=== PATIENT | male | born 1945 | race Caucasian/White ===

== ENCOUNTER 2017-02-04 18:53 | Inpatient (IN) | payer MEDICARE, OTHER ==
--- NOTE | ~2017-02-04 | CN ---
Consultation Report [facility] [address] [place]. [address] NAME: KEN GA : 46 STATUS : ADM IN [facility]#: [id number] AGE: 72 ADM/REG DATE : 02/04/17 MR#: [id number] REPORT SERV DATE: 02/10/17 DICTATED BY: RANDAL LEACH MARK SANDERS DATE: 02/09/17 REPORT STATUS : Draft TRANSCRIBED BY: MODL DATE: 02/09/17 CONSULTATION DATE OF CONSULTATION: 02/09/2017 REASON FOR CONSULTATION: Lung cancer. HISTORY OF PRESENT ILLNESS: Mr. Ga is a 72-year-old white male with a history of tobacco abuse and peripheral vascular disease who was admitted with an approximately 1 month history of cough and weight loss. Imaging in the emergency room which consisted of a chest x-ray and a CT angiogram of the chest revealed large cavitary mass in the right lung apex measuring 6.8 x 7.9 x 6.6 cm. This appeared to be eroding into the superior right chest wall, low anterior lateral second rib, and possibly involving the brachial plexus. There was a 10 mm associated supraclavicular node. Additionally, there was left apical parenchymal fibrosis. There is no clear evidence of metastatic disease outside of the right apex. He went on to have a bronchoscopy on 02/08/2017 with preliminary pathology being consistent with squamous cell carcinoma. He has had an MRI of the chest without contrast today with radiologic reading still pending. This is to evaluate the possible brachial plexus involvement. In addition to the patient's complaint of weight loss and cough, he complains of "nerve damage" in his right arm. He associates this with a bout of shingles approximately one year ago. He states he has had trouble with movement of the arm as well as pain in it as well. PAST MEDICAL HISTORY: 1. Peripheral vascular disease. 2. Peripheral artery disease. ALLERGIES: NO KNOWN DRUG ALLERGIES. HOME MEDICATIONS: Reviewed on the chart. SOCIAL HISTORY: He smokes for most of his life. He does not use alcohol. FAMILY HISTORY: Significant for his father with an unknown cancer. His mother had coronary artery disease. REVIEW OF SYSTEMS: A 12-point review of systems negative except as per HPI. PHYSICAL EXAMINATION: VITAL SIGNS: Blood pressure 110/57, pulse 89, and temperature 98.3. GENERAL: Very thin, no acute distress. HEENT: Anicteric sclerae. Oropharynx clear. NECK: Supple. No lymphadenopathy. Consultation Report [place] [address] [place]. [address] NAME: KEN GA : 46 STATUS : ADM IN [facility]#: [id number] AGE: 72 ADM/REG DATE : 02/04/17 MR#: [id number] REPORT SERV DATE: 02/10/17 DICTATED BY: RANDAL LEACH MARK SANDERS DATE: 02/09/17 REPORT STATUS : Draft TRANSCRIBED BY: IRAIDA DATE: 02/09/17 CARDIOVASCULAR: Coarse bilateral breath sounds. Fair effort. ABDOMEN: Soft, nontender. No organomegaly. CARDIOVASCULAR: Regular rhythm. Normal S1, S2. EXTREMITIES: No clubbing, cyanosis, or edema. LABORATORY DATA: Creatinine 0.58. White count 7500, hemoglobin 11.2 g, and platelets 293,000. ASSESSMENT AND PLAN: Mr. Ga is a 72-year-old white male with a large cavitary mass in the right apex of his lung. Preliminary pathology is consistent with squamous cell carcinoma. The imaging was personally reviewed and is highly concerning for involvement with his brachial plexus. He has symptoms which are consistent with brachial plexus involvement as well. Radiation Oncology is consulted and will likely see him tomorrow. I discussed the situation with the patient. He is reluctant to pursue radiation but would like to discuss this with him. He does state that he would consider chemotherapy if needed. He will need a completion staging, I would prefer a PET scan. This likely has to be done as an outpatient. However, it may be prudent to go ahead and pursue radiation therapy to the mass with a potential involvement of the brachial plexus. I will discuss this further with Radiation Oncology. All of his questions were answered. I will continue to follow with you. Thank you for the consultation. TAMMY/IRAIDA Johnny Leach IV, M.D. / [id number] CC: Duncan Sidhu M.D.
--- NOTE | ~2017-02-04 | HP ---
History And Physical [facility] [address] [place]. [address] NAME: KEN GA : 46 STATUS : ADM IN PAT#: [id number] AGE: 72 ADM/REG DATE : 02/04/17 MR#: [id number] REPORT SERV DATE: 02/04/17 DICTATED BY: DIONNE MONTENEGRO DATE: 02/04/17 REPORT STATUS : Draft TRANSCRIBED BY: MODL DATE: 02/04/17 DATE OF ADMISSION: 02/04/2017 POINT OF ENTRY: [facility] Emergency Department. CHIEF COMPLAINT: Cough, sputum production, hemoptysis, and weight loss. HISTORY OF PRESENT ILLNESS: Mr. Ga is a 72-year-old gentleman with a history of peripheral arterial disease and peripheral vascular disease as well as active tobacco abuse, who presents to the emergency department today with a one-month history of cough with scant hemoptysis with associated weight loss. The patient states that for the past month now he has been feeling sick. His symptoms primarily are pulmonary with cough as well as blood-tinged sputum. The patient denies any xin hemoptysis. He denies any fevers, does endorse some occasional night sweats and chills. The patient also endorse an approximately 6 pounds weight loss over the past month, but does admit that his appetite has been decreased and has not been eating very much. He was seen in clinic by Dr. West a few days ago to maybe a week ago and they thought he had strep throat and put him on some medications for that. The patient denies any known TB exposure. Denies any incarceration, service, homelessness, or foreign travel. He does smoke about a half pack per day and has approximately 25 to 64-[id number]-hjbk smoking history. Initial evaluation in the emergency department for a chest x-ray concerning for right apical cavitary lesion of approximately 7 x 7 cm. Labs notable for potassium of 5.8. He was subsequently admitted to the hospitalist service for further evaluation and management. The patient denies any fevers, chest pain, abdominal pain, nausea, vomiting, diarrhea, constipation, dysuria, melena, hematochezia, or hematemesis. He does endorse occasional shortness of breath and chest pain with coughing in addition to the above-mentioned symptoms. COMPREHENSIVE REVIEW OF SYSTEMS: Otherwise negative unless listed in history of present illness. PREVIOUS MEDICAL HISTORY: 1. Active tobacco abuse. 2. Peripheral arterial disease and peripheral vascular disease. Seen by Dr. Ernandez with lower extremity stenting. 3. Left lower extremity ischemic ulcer. Managed by Dr. Castaneda. SURGICAL HISTORY: Lower extremity stenting. ALLERGIES: NO KNOWN DRUG ALLERGIES. History And Physical [address] [place]. [address] NAME: KEN GA : 46 STATUS : ADM IN PAT#: [id number] AGE: 72 ADM/REG DATE : 02/04/17 MR#: [id number] REPORT SERV DATE: 02/04/17 DICTATED BY: DIONNE MONTENEGRO DATE: 02/04/17 REPORT STATUS : Draft TRANSCRIBED BY: IRAIDA DATE: 02/04/17 HOME MEDICATIONS: Pending at the time of dictation. SOCIAL HISTORY: He smokes about a half pack per day, has approximately 25 to 14-zwze-tcok smoking history. Denies any alcohol. Denies any illicits. As I mentioned above, denies any foreign travel, incarceration, homelessness, or service as well as denies any known TB exposure. FAMILY MEDICAL HISTORY: Mother with coronary artery disease. Father with cancer, unknown. Siblings with cancer, unknown. LABS AND IMAGIN. White count is 8.1, hemoglobin is 11.8, hematocrit is 36.0, platelet count is 306. INR is 1.1. 2. Sodium is 139, potassium 5.8, chloride 106, carbon dioxide 27, BUN 26, creatinine 0.72, glucose is 94, calcium is 8.8, magnesium is 2.5. 3. EKG per my review shows normal sinus rhythm with no evidence of any acute ischemia or infarction. Also no T-wave changes secondary to hyperkalemia appreciated. 4. Troponin less than 0.02. 5. Chest x-ray shows a right apical cavitary lesion approximately 7.2 x 7.3 cm as well as some COPD type changes with hyperinflation and flattened diaphragms. 6. CTA of the chest is pending at the time of dictation. PHYSICAL EXAMINATION: VITAL SIGNS: Temperature is 98.2 degrees Fahrenheit, pulse is 77, respirations 18, saturating 97% on room air, blood pressure 135/71. GENERAL: The patient is awake, alert, in no acute distress, resting comfortably in bed. He is a chronically ill-appearing, elderly male who is somewhat cachectic and appears older than stated age. HEENT: Atraumatic and normocephalic. Moist mucous membranes. Pupils equal, round, reactive to light and accommodation. Extraocular eye movements are intact. No scleral icterus. NECK: No jugular venous distention. No carotid bruits. CARDIAC: Regular rate and rhythm. No murmurs, rubs, or gallops. Normal S1, S2. LUNGS: Decreased breath sounds at bases with prolonged respiratory phase, but no wheezes, rhonchi, or crackles appreciated. ABDOMEN: Soft, nontender, nondistended with good bowel sounds. No rebound, guarding, or rigidity. EXTREMITIES: Left lower extremity is currently bandaged and wrapped. Right lower extremity is in a compression stocking. SKIN: Warm and dry except for noted above. PSYCH: Affect appropriate. NEURO: Alert and oriented x3. Cranial nerves 2 through 12 grossly intact. Speech is normal. Gait not assessed. ASSESSMENT AND PLAN: Mr. Ga is a 72-year-old gentleman, who presents with a one-month history of cough, scant hemoptysis, sputum production and weight loss and found to have a History And Physical [address] [address] NAME: KEN GA : 46 STATUS : ADM IN [facility]#: [id number] AGE: 72 ADM/REG DATE : 02/04/17 MR#: [id number] REPORT SERV DATE: 02/04/17 DICTATED BY: DIONNE MONTENEGRO DATE: 02/04/17 REPORT STATUS : Draft TRANSCRIBED BY: MODKusum DATE: 02/04/17 right apical cavitary lung lesion concerning for possible malignancy versus infection versus TB. PROBLEM LIST: 1. Right apical cavitary lung lesion. 2. Scant hemoptysis. 3. Hyperkalemia. 4. Chronic obstructive pulmonary disease. 5. History of peripheral vascular disease and peripheral arterial disease. PLAN: 1. Right apical cavitary lung lesion with scant hemoptysis. We will follow up CT of the chest which has been ordered here in the emergency department. Given concern for possible TB, we will place him empirically on airborne precautions. We will check a sputum culture, PPD as well as AFB smear and culture. We will consult Pulmonology for assistance and determine etiology of patient's symptoms. 2. Hyperkalemia. No EKG changes at this time. We will admit to cardiac telemetry. The patient received Kayexalate, calcium gluconate, IV fluids as well as insulin and glucose here in the emergency department. 3. COPD. No evidence of any exacerbation at this time. We will place the patient on some DuoNeb therapy. 4. Peripheral arterial disease and peripheral vascular disease. The patient states this is a long-standing issue. He denies being on any aspirin and Plavix at this time. We will consult Wound Care for assistance with management of the patient's vascular related ulcer on his left lower extremity. 5. DVT prophylaxis. TEDs and SCDs given hemoptysis. CODE STATUS: The patient wished to be full code. JCB/MODL Dionne Montenegro MD / [id number] CC: Devang Ly M.D.
--- NOTE | ~2017-02-04 | OP ---
Record Of Operation [facility] [address] [place]. [address] NAME: KEN GA : 46 STATUS : ADM IN PAT#: [id number] AGE: 72 ADM/REG DATE : 02/04/17 MR#: [id number] REPORT SERV DATE: 02/08/17 DICTATED BY: JOSEAHNK SHEILA DATE: 02/08/17 REPORT STATUS : Draft TRANSCRIBED BY: MODL DATE: 02/08/17 DATE OF PROCEDURE: 02/08/2017 PREPROCEDURE DIAGNOSIS: Right upper lobe cavitary mass. POSTPROCEDURE DIAGNOSIS: Right upper lobe cavitary mass. PROCEDURE: Bronchoscopy and endobronchial ultrasound with BAL, endobronchial biopsy and transbronchial needle aspiration. SPECIMENS: Right lung BAL, right endobronchial brushing in the right upper lobe, right upper lobe endobronchial biopsies, transbronchial needle aspiration of level 7 and right peritracheal nodes. DESCRIPTION OF PROCEDURE: Informed consent was obtained from the patient, both verbal and written. Risks and side effects were discussed and all questions answered. The patient was brought down to the bronchoscopy suite and sedated by Anesthesia. The patient was intubated with size 8.5 ET tube. The fiberoptic scope was inserted into the endotracheal tube to visualize the main charmaine and the distal trachea, which appeared normal. The left bronchial tree was surveyed with the left mainstem bronchus in the left upper lobe lingula and left lower lobe having some white tenacious secretions that were suctioned back, but the left lung was free of any endobronchial lesion or abnormality or mucosal irregularities. Thus, the scope was then withdrawn and inserted into the right mainstem, which immediately showed significant abnormalities of some mild right mainstem narrowing with an extrinsic mass like area on the 2 o'clock position of the right mainstem bronchus and then advancing further, you see a hole that I was not able to advance my adult scope into. I switched it out to a pediatric scope and inserted into the orifice of this hole to visualize the very large cavity with tumor inside of it. There did not appear to be any bronchopleural fistula I could see. The scope was withdrawn and then I switched out to the adult scope again to visualize the right middle lobe and right lower lobe which had some white tenacious secretions which were suctioned back, but the segments were open. The right upper lobe was completely collapsed by tumor. At the orifice of the cavity, there was tumor surrounding this area, so I took brushings and endobronchial biopsies. The brushings were sent for some slides and pathology. The endobronchial biopsies of this right upper lobe were sent for some touch preps, as well as pathology. Rapid on-site cytology did show that there was malignant cells favoring squamous cell cancer. I also got the BAL of the right lung as well. The scope was withdrawn and the endobronchial ultrasound scope was then inserted to visualize the level 7 lymph node with two slides and two cell blocks obtained. Specimens were obtained as the transbronchial needle aspiration. There was a good lymphoid sample for what the pathology says, but there were no obvious malignant cells. I then turned my attention to the right paratracheal mass. I sent to transbronchial needle aspiration samples for cell block. There was some bleeding around the orifice of the cavity after biopsying, so I did pour some epinephrine over that and then had good coagulation and cessation of bleeding. The patient tolerated the procedure well and was sent to recovery. Postprocedure chest x-ray is pending. Record Of [address] [address] NAME: KEN GA SHEILA : 47 STATUS : ADM IN [facility]#: [id number] AGE: 72 ADM/REG DATE : 02/04/17 MR#: [id number] REPORT SERV DATE: 02/08/17 DICTATED BY: HANK PIERRE DATE: 02/08/17 REPORT STATUS : Draft TRANSCRIBED BY: IRAIDA DATE: 02/08/17 CEP/IRAIDA Hank Pierre DO / [id number] CC: Duncan Sidhu M.D.
--- NOTE | ~2017-02-04 | CONSULT ---
Radiation Oncology Consult [facility] [address] [place]. [address] NAME: KEN GA : 46 STATUS : DIS IN PAT#: [id number] AGE: 72 ADM/REG DATE : 02/04/17 MR#: [id number] REPORT SERV DATE: 02/10/17 DICTATED BY: JAXSON ORTIZ DATE: 02/10/17 REPORT STATUS : Draft TRANSCRIBED BY: MODL DATE: 02/10/17 RADIATION ONCOLOGY CONSULTATION REPORT TITLE: Consultation REASON FOR CONSULTATION: Right Pancoast tumor. HISTORY OF PRESENT ILLNESS: Mr. Ga is a pleasant 72-year-old gentleman with history of chronic smoking, peripheral vascular disease who has had recent progression and weight loss and cough. He presented to the [facility] Emergency Room on 02/04/2017. CTA was performed showing a 6.8 x 7.9 x 6.6 cm irregular thick-walled cavitary mass in the right lung apex eroding to the anterior superior chest wall with erosion of the right anterior lateral second rib and possible involvement of the right brachial plexus. The mass invades directly into the superior right hilum extending up to the level of the charmaine, invades, and narrows the right mainstem bronchus and includes the upper lobe bronchus. There is also mildly enlarged supraclavicular lymph nodes up to 10 cm suspicious for early notes of metastasis and reticular nodule infiltrates in the lower right middle lobe which could be interstitial pneumonitis or is some asymmetric interstitial spread of malignancy. Additional MRI of the chest with and without contrast performed yesterday confirms diffuse tumoral encasement of the brachial plexus. The patient states that approximately one year ago, he had zoster eruption of the right upper chest and arm with residual neuropathy currently. Otherwise, he has 5/10 pain in the right upper chest and arm for which he has been taking pain medication. He reports 10-pound weight loss and continued phlegm production. He is currently being treated for pneumonia and states his breathing is slightly improved since be admitted to the hospital. REVIEW OF SYSTEMS: A comprehensive review of systems was obtained. Pertinent positives and negatives as listed above. PAST MEDICAL HISTORY: Chronic smoking, COPD, zoster, peripheral vascular disease, left lower extremity ulcer, toe surgery. FAMILY HISTORY: Family history of malignancy. SOCIAL HISTORY: He smoked one pack of cigarettes per day, has smoked for 50 years. He continued to smoke eight cigarettes per day up to admission. PHYSICAL EXAMINATION: GENERAL: Well-developed, thin-appearing elderly white male sitting in a hospital chair, in no acute distress. Alert and oriented x4. Performance status 2. ENT: Moist mucosa. Hearing unimpaired. NECK: Supple without adenopathy or thyromegaly. Radiation Oncology Consult [place] [address] [place]. [address] NAME: KEN GA : 46 STATUS : DIS IN PAT#: [id number] AGE: 72 ADM/REG DATE : 02/04/17 MR#: [id number] REPORT SERV DATE: 02/10/17 DICTATED BY: JAXSON ORTIZ DATE: 02/10/17 REPORT STATUS : Draft TRANSCRIBED BY: IRAIDA DATE: 02/10/17 EYES: Sclerae are anicteric. Pupils equal, round, and reactive to light. PULMONARY: Distant breath sounds throughout with rhonchi heard in the right upper chest. ABDOMEN: Soft, nontender, nondistended. Positive bowel sounds. NEUROLOGIC: Focal deficit in card decorator and finger expansion of the right hand as well as biceps abduction but flexion on the right. The patient also hold his right arm in a somewhat guarded position. He denies sensation changes over this area. IMAGING: I reviewed CT and MRI imaging and agree with the above findings. ASSESSMENT AND PLAN: 1. An 8 cm right Pancoast tumor with invasion through the chest wall with erosion of the second rib as well as encasement of brachial plexus: He needs to complete workup with PET-CT as well as contrasted MRI of the brain. In the meantime, we will work to arrange for CT simulation(hopefully tomorrow or early next week) with anticipation of at least palliative treatment (30 Gy in 10 fractions) or possibly definitive treatment (60 - 65 Gy and 30 - 35 fractions) if no additional disease with final PET-CT or MRI. I will discuss this further with Dr. Hartman. 2. Informed consent: Risks, benefits, and alternatives of radiotherapy explained to the patient. He voiced understanding and has elected to proceed with the above. Acute and late side effects were extensively discussed. is in agreement. 3. Chronic smoking: I advised him of the risk of continued smoking, and we will continue to offer smoking cessation counseling. 4. Pneumonia: This could be treated as an inpatient. 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 It may be the zoster was initialized by this encasement or could otherwise occur independently. 6. Pain: Pain is controlled at this time. Palliative radiotherapy potentially would help. It is a pleasure to participate in his care. BRENNA/IRAIDA Jaxson Ortiz MD / [id number] CC: Devang Corral DO Mark S Womack IV, M.D. David Dodson, M.D.
--- NOTE | ~2017-02-04 | DS ---
Discharge Summary [address] [id number] [place]. [address] NAME: KEN GA : 46 STATUS : DIS IN PAT#: [id number] AGE: 72 ADM/REG DATE : 02/04/17 MR#: [id number] REPORT SERV DATE: 02/11/17 DICTATED BY: DAVE BURGER DATE: 02/10/17 REPORT STATUS : Draft TRANSCRIBED BY: MODL DATE: 02/10/17 ADMISSION DATE: 02/04/2017 DISCHARGE DATE: 02/10/2017 DISCHARGE DIAGNOSES: 1. 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 2. Chronic obstructive pulmonary disease and tobacco use. 3. Pneumonia present on admission. Culture Pseudomonas. 4. Moderate malnutrition with weight loss. 5. Superficial clot in the right arm in the cephalic and basilic vein. 6. Tachycardia, atrial flutter resolved to normal sinus rhythm. 7. History of herpes zoster with postherpetic neuralgia. DISCHARGE MEDICATIONS: Gabapentin 300 mg daily, Levaquin 750 mg daily for four more days, prescription was written. Metoprolol 12.5 mg twice a day, nicotine patch 14 mg topically daily, Ventolin inhaler two puffs every four to six hours p.r.n. for shortness of breath, Symbicort 160/4.5 two puffs twice a day. CONSULTS DURING THIS ADMISSION: Include Pulmonology, Dr. Nahed Cleaning, Dr. Hank Pierre; Oncology, Dr. Johnny Stuart; Radiation Oncology, Dr. Ortiz. PROCEDURES AND IMAGING DURING THIS ADMISSION: Include a CTA of the chest showing no evidence of pulmonary embolus, but a large cavitary mass in the right lung apex eroding into superior right chest wall, eroding the anterior lateral 2nd rib possibly involving the brachial plexus; mildly enlarged supraclavicular lymph nodes; fine reticular nodular infiltrates in the anterior right middle lobe and right lower lobe; and a bronchoscopy with biopsy needle aspiration performed on 02/08/2017 with preliminary data that was suspicious for squamous cell cancer, and the venous Doppler ultrasound of the right upper extremity showing cephalic and basilic superficial acute clot. Echocardiogram showing a mildly decreased left ventricular systolic function with ejection fraction 40% to 45%, but valves were not visualized, poor-quality study, and a large left pleural effusion noted. MRI of chest showing a Pancoast type tumor eroding into the right apex with encasement of the brachial plexus. CONTINUATION OF HOSPITAL COURSE: Now, the patient was initially seen by Dr. Jay Galeas. He had been started on empiric antibiotic therapy and this was continued, and lab work did show a somewhat elevated potassium upon admission, but this trended downward the following day to 4.5. Cultures were obtained and sent. Lab work was followed closely. He initially had been put on isolation as this cavitary mass in the right lung was further evaluated, but his AFB smears have been negative. Pulmonary services recommended the above described bronchoscopy, which was performed and patient tolerated it well. Respiratory culture came back showing a Pseudomonas, and he was transitioned to Levaquin antibiotic as it was sensitive to this, and afterwards a consult was placed to [facility] who began seeing the patient, who recommended obtaining an MRI of the chest. The patient continued to do well, was able to be ambulated with physical therapy in the hallway, was eating and drinking well. It was recommended that he have outpatient home health and home physical Discharge Summary [address] [address] NAME: KEN GA : 46 STATUS : DIS IN PAT#: [id number] AGE: 72 ADM/REG DATE : 02/04/17 MR#: [id number] REPORT SERV DATE: 02/11/17 DICTATED BY: DAVE BURGER DATE: 02/10/17 REPORT STATUS : Draft TRANSCRIBED BY: IRAIDA DATE: 02/10/17 therapy continued. After discussion at length with Dr. Ortiz and Dr. Stuart, he will need an outpatient PET scan, an outpatient MRI of the brain, and will begin radiation treatments promptly as the further workup is done outpatient. He will have a followup ultrasound of the right arm in approximately seven days and outpatient pulmonary followup in three to four weeks. He will follow up with Dr. Castaneda, his snapper on for chronic left lower extremity wound that he had prior to admission. Primary care as scheduled. I have instructed him at length to stop smoking and [facility] will begin seeing the patient at home and he will also obtain a CT scan of the right upper chest contrasted that was ordered by Dr. Ortiz as well. I updated the patient's family, son, , and patient at bedside. I have answered questions extensively. They are in agreement with this plan going forward, so the patient was discharged home. Please note, greater than 30 minutes was spent on this discharge for medication teaching, followup planning, and further disposition. SARA/IRAIDA Dave Burger NP / [id number] CC: Duncan Sidhu M.D.
--- NOTE | ~2017-02-04 | CN ---
Consultation Report [facility] [address] [place]. [address] NAME: KEN GA : 46 STATUS : ADM IN [facility]#: [id number] AGE: 72 ADM/REG DATE : 02/04/17 MR#: [id number] REPORT SERV DATE: 02/05/17 DICTATED BY: NAHED SUMNER DATE: 02/05/17 REPORT STATUS : Draft TRANSCRIBED BY: MODL DATE: 02/05/17 PULMONARY CONSULTATION DATE OF CONSULTATION: 02/05/2017 REASON FOR CONSULTATION: Lung mass. HISTORY OF PRESENT ILLNESS: Mr. Ga is a 72-year-old, white male smoker, who was admitted with approximately six-week history of anorexia, malaise, and weight loss of approximately 20 pounds. He also complains of cough, productive of green sputum, and hemoptysis. He describes "sometimes a lot" of bright red blood mixed in with his sputum. He states his cough has been worse over the past one to two weeks. He has had worsening weakness in addition to the symptoms as described above, so he presented here to [facility] and was subsequently admitted. As part of his admission workup, he had a chest x-ray followed by CT angiogram of the chest that revealed a large right apical cavitary lung mass, so Pulmonary was consulted for assistance. The patient denies fever, chills, shortness of breath, wheezing, night sweats, or chest pain. He denies any TB risk factors, including exposures and recent travel. He is unaware of previous chest imaging or CT scans. He denies any prior pulmonary diagnoses. Since admission, he has been treated with IV antibiotics, IV fluids, and supplemental oxygen and feels somewhat better. PAST MEDICAL HISTORY: 1. As noted above, he denies prior pulmonary diagnoses. Per the medical record, he has COPD, though it is unclear how this was diagnosed. 2. Smoking/tobacco addiction. 3. Recent varicella zoster with residual intermittent pain. 4. Peripheral artery disease with previous lower extremity vascular stent. 5. Left lower extremity ischemic ulcer. 6. Previous toe surgery. FAMILY HISTORY: He denies family history of pulmonary diseases. SOCIAL HISTORY: Mr. Ga smoked under one pack of cigarettes per day and has been a smoker for approximately 50 years. He currently smokes seven to eight cigarettes per day. He denies ethanol intake, past/present drug use, or chewing tobacco. 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 He is and has one son. MEDICATIONS: He was on no medications as an outpatient. He denies previous treatment with Consultation Report [facility] [id number] [place]. [address] NAME: KEN GA : 46 STATUS : ADM IN PAT#: [id number] AGE: 72 ADM/REG DATE : 02/04/17 MR#: [id number] REPORT SERV DATE: 02/05/17 DICTATED BY: NAHED SUMNER DATE: 02/05/17 REPORT STATUS : Draft TRANSCRIBED BY: IRAIDA DATE: 02/05/17 any type of pulmonary medication. ALLERGIES: PENICILLIN. REVIEW OF SYSTEMS: A 10-point system review was conducted and is remarkable for the symptoms as described in the history of present illness. As noted, he has no history of prior pulmonary symptoms. He denies symptoms suggestive of obstructive sleep apnea. He denies joint pain. PHYSICAL EXAMINATION: VITAL SIGNS: Temperature 97.6 degrees, heart rate 76, respiratory rate 24, oxygen saturation 99% on supplemental oxygen at a flow rate of 2 L/minute. GENERAL: Sleeping but awakens easily to voice. Appropriate, no apparent distress. HEENT: Normocephalic. Atraumatic. There is bitemporal wasting. The conjunctivae are clear. The oropharynx is clear. NECK: Supple. No lymphadenopathy was appreciated. LUNGS: There are coarse breath sounds anteriorly. There are diminished breath sounds at both bases. There are no crackles, wheezes, or rhonchi. HEART: Regular rate and rhythm. There is no ectopy. ABDOMEN: Soft. Nontender. Nondistended. There is no hepatosplenomegaly. The bowel sounds are normal in all four quadrants. BILATERAL EXTREMITIES: No clubbing, cyanosis, or edema was noted. NEUROLOGICAL: A limited exam was found to be nonfocal. SKIN: No rashes were noted. There is some vitiligo noted on chest. LABORATORY RESULTS: Labs were reviewed and are as documented in the record. Notable labs include a white blood cell count of 6.2. The hematocrit is 35.6 with a hemoglobin of 11.3. Legionella antigen is negative. There is a sputum for AFB pending. He has had a PPD placed. IMAGING: The chest x-ray done this admission revealed a large right upper lobe cavitary mass along with hyperinflation and flattened diaphragms. No effusions or infiltrates were noted. CT angiogram of the chest done this admission did not reveal a pulmonary embolism. There is generalized emphysema. There are fine reticular infiltrates in the right middle and right lower lobes. There is a large right apical thick-walled cavitary lung mass that measures 6.8 x 7.9 x 6.6 cm per Radiology. This mass is eroding into the anterior chest wall and the second rib. It extends from the right hilum/charmaine and involves the right mainstem and right upper lobe bronchus. There is slight enlargement of the right supraclavicular nodes. ASSESSMENT AND PLAN: Mr. Ga is a 72-year-old, white male smoker with a large right apical lung mass, weight loss, cough, and hemoptysis. His symptoms are most suspicious for malignancy but infection is possible particularly tuberculosis or other atypical mycobacteria. Consultation Report [address] [address] NAME: KEN GA : 46 STATUS : ADM IN [facility]#: [id number] AGE: 72 ADM/REG DATE : 02/04/17 MR#: [id number] REPORT SERV DATE: 02/05/17 DICTATED BY: NAHED SUMNER DATE: 02/05/17 REPORT STATUS : Draft TRANSCRIBED BY: IRAIDA DATE: 02/05/17 I agree with his current antibiotic regimen. As noted above, a PPD has been placed. One sputum has been obtained for AFB. Recommend sputum smear and culture for AFB x3 as well as routine sputum culture. If/when the AFB smears are negative, then recommend biopsy with bronchoscopy being the highest yield as the patient does have extensive involvement of the right lung. With regard to his baseline pulmonary function, he does deny COPD, though he does have emphysema and changes consistent with COPD noted on the CT scan of the chest. I agree with bronchodilators. Recommend baseline PFTs when the patient is able. He was counseled for approximately 5 minutes regarding the importance of smoking cessation. I agree with nicotine replacement. Thank you very much for this consultation. Further recommendations to follow after AFB smears are available for review. EUGENIO/IRAIDA Nahed Sumner M.D. / [phone] CC: Jay Galeas M.D.
[2017-02-04 14:45] LABS: BASOPHILS 0.5 %; BASOPHILS ABSOLUTE 0.04 10/3/uL (0.0-0.16); EOSINOPHILS 0.4 %; EOSINOPHILS ABSOLUTE 0.03 10/3/uL (0.0-0.53); ER CBC TAT 0 Hrs 05 Mins; HEMOGLOBIN 11.8 g/dL (13.6-17.8); IMMATURE GRANULOCYTES 0.1 %; IMMATURE GRANULOCYTES ABSOLUTE 0.01 10/3/uL (0.0-0.11); LYMPHOCYTES 18.9 %; LYMPHOCYTES ABSOLUTE 1.53 10/3/uL (0.67-4.30); MEAN CORPUS HGB CONC 32.8 g/dL (32.0-36.0); MEAN CORPUSCULAR HEMOGLOB 29.3 pg (26.0-34.0); MONOCYTES 12.3 %; NEUTROPHILS 67.8 %; NEUTROPHILS ABSOLUTE 5.49 10/3/uL (2.02-8.40); PLATELET COUNT 306 10/3/uL (150-400); RBC DISTRIBUTION WIDTH 13.5 % (12.0-16.0); RED CELL COUNT 4.03 10/6/uL (4.7-6.1); WHITE BLOOD CELLS 8.1 10/3/uL (4.5-10.5)
[2017-02-04 14:48] LABS: MANUAL DIFF NO %; MEAN CORPUSCULAR VOLUME 89.3 fL (80-100)
[2017-02-04 14:53] LABS: INTERNATIONAL NORMAL RATI 1.1 UNITS (-); PARTIAL THROMBO TIME 40.5 SEC (22.5-37.2); PROTIME (NOT ORD) 14.5 SEC (12.0-14.5)
[2017-02-04 14:59] LABS: BUN (BLOOD UREA NITROGEN) 26 MG/DL (6-23); CALCIUM, SERUM 8.8 MG/DL (8.5-10.4); CHEST PAIN PROFILE TAT 0 Hrs 19 Mins; CHLORIDE, SERUM 106 MMOL/L (96-112); CO2 (CARBON DIOXIDE) 27 MMOL/L (24-34); CREATININE 0.72 MG/DL (0.70-1.30); GFR AFRICAN AMERICAN 109 ML/MIN (>=60); GFR NON AFRICAN AMERICAN 94 ML/MIN (>=60); GLUCOSE, SERUM 94 MG/DL (60-99); POTASSIUM, SERUM 5.8 MMOL/L (3.5-5.3); SODIUM, SERUM 139 MMOL/L (135-148); TROPONIN I <0.02 NG/ML (<0.05)
[2017-02-04] MEDS ORDERED: NEUR300 PO (19:40)
[2017-02-05 00:04] LABS: ALBUMIN 2.8 G/DL (3.5-5.0); DIRECT BILIRUBIN 0.2 MG/DL (0.0-0.4); INDIRECT BILIRUBIN(NOT ORDER) 0.3 MG/DL (0.1-0.9); SGOT(AST) 24 U/L (5-40); SGPT(ALT) 26 U/L (5-65); TOTAL BILIRUBIN 0.5 MG/DL (0-1.2); TOTAL PROTEIN 7.7 G/DL (6.0-8.5)
[2017-02-05 00:10] LABS: ALKALINE PHOSPHATASE 71 U/L (45-117)
[2017-02-05 04:02] LABS: BASOPHILS 0.5 %; BASOPHILS ABSOLUTE 0.03 10/3/uL (0.0-0.16); EOSINOPHILS 1.1 %; EOSINOPHILS ABSOLUTE 0.07 10/3/uL (0.0-0.53); HEMATOCRIT 35.6 % (40.0-51.0); HEMOGLOBIN 11.3 g/dL (13.6-17.8); IMMATURE GRANULOCYTES 0.2 %; IMMATURE GRANULOCYTES ABSOLUTE 0.01 10/3/uL (0.0-0.11); LYMPHOCYTES 25.4 %; LYMPHOCYTES ABSOLUTE 1.57 10/3/uL (0.67-4.30); MEAN CORPUS HGB CONC 31.7 g/dL (32.0-36.0); MEAN CORPUSCULAR HEMOGLOB 28.9 pg (26.0-34.0); MEAN PLATELET VOLUME 9.3 fL (9.2-13.0); MONOCYTES 12.6 %; MONOCYTES ABSOLUTE 0.78 10/3/uL (0.21-1.20); NEUTROPHILS 60.2 %; NEUTROPHILS ABSOLUTE 3.73 10/3/uL (2.02-8.40); PLATELET COUNT 291 10/3/uL (150-400); RBC DISTRIBUTION WIDTH 13.7 % (12.0-16.0); RED CELL COUNT 3.91 10/6/uL (4.7-6.1); WHITE BLOOD CELLS 6.2 10/3/uL (4.5-10.5)
[2017-02-05 04:03] LABS: MANUAL DIFF NO %
[2017-02-05 04:14] LABS: CALCIUM, SERUM 8.2 MG/DL (8.5-10.4); CHLORIDE, SERUM 109 MMOL/L (96-112); CO2 (CARBON DIOXIDE) 25 MMOL/L (24-34); CREATININE 0.57 MG/DL (0.70-1.30); GFR AFRICAN AMERICAN 120 ML/MIN (>=60); GFR NON AFRICAN AMERICAN 103 ML/MIN (>=60); GLUCOSE, SERUM 87 MG/DL (60-99); SODIUM, SERUM 143 MMOL/L (135-148)
[2017-02-05 04:27] LABS: BUN (BLOOD UREA NITROGEN) 18 MG/DL (6-23); POTASSIUM, SERUM 4.5 MMOL/L (3.5-5.3)
[2017-02-05 20:59] LABS: FREE T4 1.4 NG/DL (0.76-1.46); ULTRASENSITIVE TSH 1.31 MCIU/ML (0.358-3.740)
[2017-02-06 07:50] LABS: BASOPHILS 0.1 %; BASOPHILS ABSOLUTE 0.01 10/3/uL (0.0-0.16); EOSINOPHILS 0.7 %; EOSINOPHILS ABSOLUTE 0.05 10/3/uL (0.0-0.53); HEMATOCRIT 33.7 % (40.0-51.0); HEMOGLOBIN 11.1 g/dL (13.6-17.8); IMMATURE GRANULOCYTES 0.1 %; IMMATURE GRANULOCYTES ABSOLUTE 0.01 10/3/uL (0.0-0.11); LYMPHOCYTES 18.6 %; LYMPHOCYTES ABSOLUTE 1.28 10/3/uL (0.67-4.30); MEAN CORPUS HGB CONC 32.9 g/dL (32.0-36.0); MEAN CORPUSCULAR HEMOGLOB 28.8 pg (26.0-34.0); MEAN PLATELET VOLUME 8.8 fL (9.2-13.0); MONOCYTES 12.3 %; MONOCYTES ABSOLUTE 0.85 10/3/uL (0.21-1.20); NEUTROPHILS 68.2 %; PLATELET COUNT 291 10/3/uL (150-400); RED CELL COUNT 3.86 10/6/uL (4.7-6.1); WHITE BLOOD CELLS 6.9 10/3/uL (4.5-10.5)
[2017-02-06 07:54] LABS: MEAN CORPUSCULAR VOLUME 87.3 fL (80-100)
[2017-02-06 07:55] LABS: MANUAL DIFF NO %
[2017-02-06 07:56] LABS: CALCIUM, SERUM 7.5 MG/DL (8.5-10.4); CHLORIDE, SERUM 108 MMOL/L (96-112); CO2 (CARBON DIOXIDE) 26 MMOL/L (24-34); CREATININE 0.57 MG/DL (0.70-1.30); GFR AFRICAN AMERICAN 120 ML/MIN (>=60); GFR NON AFRICAN AMERICAN 103 ML/MIN (>=60); GLUCOSE, SERUM 93 MG/DL (60-99); SODIUM, SERUM 142 MMOL/L (135-148)
[2017-02-06 07:57] LABS: BUN (BLOOD UREA NITROGEN) 9 MG/DL (6-23); POTASSIUM, SERUM 3.5 MMOL/L (3.5-5.3)
[2017-02-07 04:51] LABS: BASOPHILS 0.4 %; BASOPHILS ABSOLUTE 0.03 10/3/uL (0.0-0.16); EOSINOPHILS 1.2 %; EOSINOPHILS ABSOLUTE 0.09 10/3/uL (0.0-0.53); HEMATOCRIT 34.3 % (40.0-51.0); HEMOGLOBIN 11.2 g/dL (13.6-17.8); IMMATURE GRANULOCYTES 0.3 %; IMMATURE GRANULOCYTES ABSOLUTE 0.02 10/3/uL (0.0-0.11); LYMPHOCYTES 15.2 %; LYMPHOCYTES ABSOLUTE 1.13 10/3/uL (0.67-4.30); MEAN CORPUS HGB CONC 32.7 g/dL (32.0-36.0); MEAN CORPUSCULAR HEMOGLOB 29.2 pg (26.0-34.0); MEAN CORPUSCULAR VOLUME 89.3 fL (80-100); MEAN PLATELET VOLUME 9.1 fL (9.2-13.0); MONOCYTES 10.1 %; MONOCYTES ABSOLUTE 0.75 10/3/uL (0.21-1.20); NEUTROPHILS 72.8 %; NEUTROPHILS ABSOLUTE 5.43 10/3/uL (2.02-8.40); PLATELET COUNT 293 10/3/uL (150-400); RBC DISTRIBUTION WIDTH 13.8 % (12.0-16.0); RED CELL COUNT 3.84 10/6/uL (4.7-6.1); WHITE BLOOD CELLS 7.5 10/3/uL (4.5-10.5)
[2017-02-07 04:54] LABS: MANUAL DIFF NO %
[2017-02-07 05:08] LABS: BUN (BLOOD UREA NITROGEN) 7 MG/DL (6-23); CALCIUM, SERUM 7.8 MG/DL (8.5-10.4); CHLORIDE, SERUM 107 MMOL/L (96-112); CREATININE 0.47 MG/DL (0.70-1.30); GFR AFRICAN AMERICAN 130 ML/MIN (>=60); GFR NON AFRICAN AMERICAN 112 ML/MIN (>=60); GLUCOSE, SERUM 102 MG/DL (60-99); SODIUM, SERUM 138 MMOL/L (135-148)
[2017-02-07 05:13] LABS: CO2 (CARBON DIOXIDE) 21 MMOL/L (24-34)
[2017-02-08 20:32] LABS: BD FL LYMPH (NOT ORD) 0 %; BF BASO (NOT OF) 0 %; BF LARGE MONONUCLEAR 8 %; BODY FLUID EOS (NOT ORD) 0 %; BODY FLUID SEG (NOT ORD) 92 %
[2017-02-08 20:33] LABS: BD FL SOURCE (NOT ORD) BAL--RIGHT LUNG; BF TOTAL CELL CT (NOT ORD 114370 /MM3; BODY FLUID RBC (NOT ORD) 259000 /MM3
[2017-02-09 16:11] LABS: BUN (BLOOD UREA NITROGEN) 10 MG/DL (6-23); CALCIUM, SERUM 8.2 MG/DL (8.5-10.4); CREATININE 0.58 MG/DL (0.70-1.30); GFR AFRICAN AMERICAN 119 ML/MIN (>=60); GFR NON AFRICAN AMERICAN 103 ML/MIN (>=60); GLUCOSE, SERUM 100 MG/DL (60-99); POTASSIUM, SERUM 4.4 MMOL/L (3.5-5.3); SODIUM, SERUM 135 MMOL/L (135-148)
[2017-02-09 16:13] LABS: CHLORIDE, SERUM 97 MMOL/L (96-112); CO2 (CARBON DIOXIDE) 29 MMOL/L (24-34)
[2017-02-10 03:47] LABS: BASOPHILS 0.2 %; BASOPHILS ABSOLUTE 0.02 10/3/uL (0.0-0.16); EOSINOPHILS 0.9 %; EOSINOPHILS ABSOLUTE 0.08 10/3/uL (0.0-0.53); HEMOGLOBIN 10.1 g/dL (13.6-17.8); IMMATURE GRANULOCYTES 0.2 %; IMMATURE GRANULOCYTES ABSOLUTE 0.02 10/3/uL (0.0-0.11); LYMPHOCYTES 12.1 %; MEAN CORPUS HGB CONC 33.1 g/dL (32.0-36.0); MEAN CORPUSCULAR HEMOGLOB 29.3 pg (26.0-34.0); MEAN CORPUSCULAR VOLUME 88.4 fL (80-100); MEAN PLATELET VOLUME 8.5 fL (9.2-13.0); MONOCYTES 10.3 %; MONOCYTES ABSOLUTE 0.94 10/3/uL (0.21-1.20); NEUTROPHILS 76.3 %; NEUTROPHILS ABSOLUTE 6.95 10/3/uL (2.02-8.40); PLATELET COUNT 308 10/3/uL (150-400); RBC DISTRIBUTION WIDTH 13.9 % (12.0-16.0); RED CELL COUNT 3.45 10/6/uL (4.7-6.1); WHITE BLOOD CELLS 9.1 10/3/uL (4.5-10.5)
[2017-02-10 03:51] LABS: HEMATOCRIT 30.5 % (40.0-51.0); MANUAL DIFF NO %
[2017-02-10 04:06] LABS: BUN (BLOOD UREA NITROGEN) 10 MG/DL (6-23); CALCIUM, SERUM 8.1 MG/DL (8.5-10.4); CHLORIDE, SERUM 102 MMOL/L (96-112); CO2 (CARBON DIOXIDE) 27 MMOL/L (24-34); CREATININE 0.54 MG/DL (0.70-1.30); GFR AFRICAN AMERICAN 122 ML/MIN (>=60); GFR NON AFRICAN AMERICAN 106 ML/MIN (>=60); GLUCOSE, SERUM 115 MG/DL (60-99); POTASSIUM, SERUM 4.3 MMOL/L (3.5-5.3); SODIUM, SERUM 137 MMOL/L (135-148)
[2017-02-10 07:35] LABS: PHOSPHORUS, SERUM 2.3 MG/DL (2.5-4.5)
[2017-02-10] MEDS ORDERED: LEVAQUIN750 MG PO (14:36)
[2017-02-10] MEDS ORDERED: LOP25 PO (14:37)
[2017-02-10] MEDS ORDERED: HABIT14 (14:37)
[2017-02-10] MEDS ORDERED: SYMBICORT 160/41 INH INH (14:39)
[2017-02-10] MEDS ORDERED: VENTOLIN HFA INH (14:40)
[2017-02-10 22:18] LABS: QUANTIFERON MITOGEN (MG NIL) 3.08 IU/mL (()); QUANTIFERON NIL 0.08 IU/mL (()); QUANTIFERON TB GOLD Negative (NEG)
[2017-04-09] MEDS ORDERED: NORCO1 TA2 PO (10:36)
[2017-04-09] MEDS ORDERED: CHEMO (10:37)
== END 2017-02-10 17:58 | disposition home health service (06) | DRG 166 ==
LOC: ER 18:53 → 6NO 19:54
PROVIDERS: Emergency Medicine; Internal Medicine; Internal Medicine Pulmonary Disease; Nurse Practitioner Family
PROC: 0B948ZX Drainage of Right Upper Lobe Bronchus, Via Natural or Artificial Opening Endoscopic, Diagnostic (ICD-10-PCS; principal; 2017-02-08 16:38)
PROC: 07B74ZX Excision of Thorax Lymphatic, Percutaneous Endoscopic Approach, Diagnostic (ICD-10-PCS; 2017-02-08 16:38)
PROC: 0BB48ZX Excision of Right Upper Lobe Bronchus, Via Natural or Artificial Opening Endoscopic, Diagnostic (ICD-10-PCS; 2017-02-08 16:38)
DX: C34.11 Malignant neoplasm of upper lobe, right bronchus or lung (principal); J15.1 Pneumonia due to Pseudomonas; E44.0 Moderate protein-calorie malnutrition; J90 Pleural effusion, not elsewhere classified; I48.92 Unspecified atrial flutter; C79.51 Secondary malignant neoplasm of bone; B02.29 Other postherpetic nervous system involvement; I82.611 Acute embolism and thrombosis of superficial veins of right upper extremity; Z68.1 Body mass index [BMI] 19.9 or less, adult; E87.5 Hyperkalemia; J44.9 Chronic obstructive pulmonary disease, unspecified; D64.9 Anemia, unspecified; F17.210 Nicotine dependence, cigarettes, uncomplicated; K59.00 Constipation, unspecified; I73.9 Peripheral vascular disease, unspecified; Z88.0 Allergy status to penicillin
CPT/HCPCS: 71010; 71020; 71275; 71552; 80048; 80076; 82533; 82607; 82728; 83735; 84100; 84439; 84443; 84484; 85025; 85610; 85730; 86480; 87015; 87040; 87070; 87077; 87102; 87116; 87186; 87205; 87449; 88112; 88173; 88305; 88333; 89051; 93005; 93971; 94640; 97162-GP; 99291; A9270-GY; A9577; C1725; C8929; G0463; G8978-CK-GP; G8979-CJ-GP; J0456; J0610; J0692; J2370; J2405; J2710; J3010; Q9957; Q9967

== ENCOUNTER 2017-03-01 08:52 | Day surgery (SDC) | payer MEDICARE, OTHER ==
--- NOTE | ~2017-03-01 | OP ---
Record Of Operation [facility] [address] [place]. [address] NAME: KEN GA : 47 STATUS : REG [facility] PAT#: [id number] AGE: 72 ADM/REG DATE : 03/01/17 MR#: [id number] REPORT SERV DATE: 03/01/17 DICTATED BY: DAREN MONTERO DATE: 03/01/17 REPORT STATUS : Draft TRANSCRIBED BY: MODL DATE: 03/01/17 DATE OF PROCEDURE: 03/01/2017 PREOPERATIVE DIAGNOSES: 1. Right lung cavitary squamous cell carcinoma. 2. Chronic obstructive pulmonary disease. 3. Nicotine dependence. 4. Atrial flutter. 5. Moderate malnutrition, secondary to #1. 6. Need for central IV access. POSTOPERATIVE DIAGNOSES: 1. Right lung cavitary squamous cell carcinoma. 2. Chronic obstructive pulmonary disease. 3. Nicotine dependence. 4. Atrial flutter. 5. Moderate malnutrition, secondary to #1. 6. Need for central IV access. PROCEDURE: Left subclavian vein Port-A-Cath placement with intraoperative fluoroscopy. ANESTHESIA: IV sedation with local. SURGEON: Daren Montero M.D. MASTIC SPRAYER: Baljinder. COMPLICATIONS: None. DRAINS: None. ESTIMATED BLOOD LOSS: 10 mL. OPERATIVE TECHNIQUE: The patient was brought to the operating room and placed on the table in supine position. He had preoperative IV antibiotics. He had sequential hose in place. He voided prior to the procedure. He underwent adequate IV sedation with MAC anesthesia and local anesthesia was then instilled to the left subclavian space after he was prepped and draped in sterile fashion. A time-out was completed. A needle was used to access the left subclavian vein. A wire was passed via Seldinger technique confirmed in the central venous system. The 15 blade knife was used to make a transverse incision at the wire insertion site, it was carried down to the chest wall. A pocket was then created inferiorly using blunt dissection. The preassembled flush catheter was then secured to the chest wall with interrupted three-point fixation. The catheter was then measured with aid of fluoroscopy and cut to length. The dilator and sheath were placed over the wire and the wire and dilator were removed. The catheter was then advanced fully and the sheath peeled away. The reservoir was then accessed, it was noted to aspirate easily and was flushed with Record Of Operation [facility] [address] [place]. [address] NAME: KEN GA : 47 STATUS : REG [facility] PAT#: [id number] AGE: 72 ADM/REG DATE : 03/01/17 MR#: [id number] REPORT SERV DATE: 03/01/17 DICTATED BY: DAREN MONTERO DATE: 03/01/17 REPORT STATUS : Draft TRANSCRIBED BY: MODL DATE: 03/01/17 heparinized solution. It was noted to be in good position intraoperatively with fluoroscopy. The subcutaneous tissues were then irrigated and hemostasis was noted. They were reapproximated using interrupted 3-0 Vicryl sutures followed by a running Monocryl subcuticular stitch. Dermabond was applied to the skin. He tolerated the procedure well and was taken to the recovery room in stable condition. All sponge and needle counts reported correct. /IRAIDA Daren Montero M.D. / [id number] CC: Devang Smith M.D. Mark S Womack IV, M.D. Marcus Wagner, MD
[~2017-03-01 08:52] MED LIST: HABIT14; LEVAQUIN750 MG PO; LOP25 PO; NEUR300 PO; SYMBICORT 160/41 INH INH; VENTOLIN HFA INH
[2017-03-01 10:11] LABS: HEMATOCRIT 32.3 % (40.0-51.0); HEMOGLOBIN 10.4 g/dL (13.6-17.8)
[2017-03-01 10:24] LABS: CALCIUM, SERUM 8.8 MG/DL (8.5-10.4); CHLORIDE, SERUM 99 MMOL/L (96-112); CO2 (CARBON DIOXIDE) 27 MMOL/L (24-34); CREATININE 0.62 MG/DL (0.70-1.30); GFR AFRICAN AMERICAN 116 ML/MIN (>=60); GFR NON AFRICAN AMERICAN 100 ML/MIN (>=60); POTASSIUM, SERUM 4.7 MMOL/L (3.5-5.3); SODIUM, SERUM 134 MMOL/L (135-148)
[2017-03-01 10:25] LABS: BUN (BLOOD UREA NITROGEN) 23 MG/DL (6-23); GLUCOSE, SERUM 85 MG/DL (60-99)
[2017-04-09] MEDS ORDERED: NORCO1 TA2 PO (10:36)
[2017-04-09] MEDS ORDERED: CHEMO (10:37)
== END 2017-03-01 18:17 | disposition home or self-care (01) ==
LOC: SDC 08:52
PROVIDERS: Surgery
PROC: 0JH60WZ Insertion of Totally Implantable Vascular Access Device into Chest Subcutaneous Tissue and Fascia, Open Approach (ICD-10-PCS; principal; 2017-03-01 09:30)
DX: C34.91 Malignant neoplasm of unspecified part of right bronchus or lung (principal); C34.92 Malignant neoplasm of unspecified part of left bronchus or lung; J44.9 Chronic obstructive pulmonary disease, unspecified; I48.92 Unspecified atrial flutter; Z88.0 Allergy status to penicillin
CPT/HCPCS: 71010; 76000; 80048; 85014; 85018; 93005; 94640; C1751; J0690; J2250; J3010; Q9967

== ENCOUNTER 2017-04-09 15:30 | Emergency (ER) | payer MEDICARE, OTHER ==
[2017-04-09 09:14] LABS: BASOPHILS 0.2 %; BASOPHILS ABSOLUTE 0.01 10/3/uL (0.0-0.16); EOSINOPHILS 0 %; HEMOGLOBIN 9.2 g/dL (13.6-17.8); IMMATURE GRANULOCYTES 0.4 %; LYMPHOCYTES 7.6 %; LYMPHOCYTES ABSOLUTE 0.35 10/3/uL (0.67-4.30); MEAN CORPUS HGB CONC 33.3 g/dL (32.0-36.0); MEAN CORPUSCULAR HEMOGLOB 29.7 pg (26.0-34.0); MEAN PLATELET VOLUME 8.4 fL (9.2-13.0); MONOCYTES 11.1 %; MONOCYTES ABSOLUTE 0.51 10/3/uL (0.21-1.20); NEUTROPHILS 80.7 %; NEUTROPHILS ABSOLUTE 3.72 10/3/uL (2.02-8.40); PLATELET COUNT 273 10/3/uL (150-400); RBC DISTRIBUTION WIDTH 16.3 % (12.0-16.0)
[2017-04-09 09:16] LABS: ER CBC TAT 0 Hrs 11 Mins; HEMATOCRIT 27.6 % (40.0-51.0); IMMATURE GRANULOCYTES ABSOLUTE 0.02 10/3/uL (0.0-0.11); MANUAL DIFF NO %; WHITE BLOOD CELLS 4.6 10/3/uL (4.5-10.5)
[2017-04-09 09:21] LABS: INTERNATIONAL NORMAL RATI 1.2 UNITS (-); PROTIME (NOT ORD) 14.8 SEC (12.0-14.5)
[2017-04-09 09:31] LABS: A/G RATIO 0.4 (0.7-1.9); ALBUMIN 1.9 G/DL (3.5-5.0); ALKALINE PHOSPHATASE 81 U/L (45-117); BUN (BLOOD UREA NITROGEN) 13 MG/DL (6-23); CALCIUM, SERUM 8.3 MG/DL (8.5-10.4); CHLORIDE, SERUM 100 MMOL/L (96-112); CO2 (CARBON DIOXIDE) 26 MMOL/L (24-34); CREATININE 0.55 MG/DL (0.70-1.30); GFR AFRICAN AMERICAN 122 ML/MIN (>=60); GFR NON AFRICAN AMERICAN 105 ML/MIN (>=60); GLUCOSE, SERUM 104 MG/DL (60-99); POTASSIUM, SERUM 4.1 MMOL/L (3.5-5.3); SGOT(AST) 13 U/L (5-40); SGPT(ALT) 15 U/L (5-65); SODIUM, SERUM 128 MMOL/L (135-148); TOTAL BILIRUBIN 0.3 MG/DL (0-1.2); TOTAL PROTEIN 6.9 G/DL (6.0-8.5); TROPONIN I <0.02 NG/ML (<0.05)
[2017-04-09 09:36] LABS: BAND NEUTROPHILS 12 %; BASOPHILS 1 %; BASOPHILS ABSOLUTE (CALC) 0.05 10/3/uL (0.0-0.16); ER DIFF TAT 0 Hrs 31 Mins; LYMPHOCYTES 4 %; LYMPHOCYTES ABSOLUTE (CALC) 0.18 10/3/uL (0.67-4.30); MONOCYTES 7 %; MONOCYTES ABSOLUTE (CALC) 0.32 10/3/uL (0.21-1.20); NEUTROPHILS ABSOLUTE (CALC) 4.05 10/3/uL (2.02-8.40); PLATELET ESTIMATE ADQ (ADEQUATE); RBC MORPHOLOGY NORM (NORMAL); SEGMENTED NEUTROPHIL (0) 76 %; TOTAL NUCLEATED CELLS 100
[~2017-04-09 15:30] MED LIST changes: +CHEMO; +NORCO1 TA2 PO
== END 2017-04-09 15:38 | disposition home or self-care (01) ==
LOC: ER 15:30
PROVIDERS: Emergency Medicine
DX: I48.92 Unspecified atrial flutter (principal); J44.9 Chronic obstructive pulmonary disease, unspecified; I73.9 Peripheral vascular disease, unspecified; F17.200 Nicotine dependence, unspecified, uncomplicated; Z85.118 Personal history of other malignant neoplasm of bronchus and lung; Z88.0 Allergy status to penicillin; Z79.899 Other long term (current) drug therapy
CPT/HCPCS: 71010; 80053; 83880; 84484; 85025; 85610; 93005; 96374; 96375; 96376; 99285; A9270-GY; J1160